=== PATIENT | female | born 1975 | race African-American/Black ===

== ENCOUNTER 2017-07-20 16:30 | Emergency (ER) | payer SELFPAY ==
[~2017-07-20] VITALS: Ht 175.3 cm; Wt 86.0 kg
[~2017-07-20 16:30] MED LIST: CIPR500T2 PO; LORT7.5T3 PO; TRAM50 PO
[2017-07-20 16:31] VITALS: BP 178/118; PULSE 106; RESP 20; TEMP 98.9; O2SAT 97
[2017-07-20 17:20] LABS: AUTOMATED NEUTROPHIL # 4.8 TH/MM3 (1.8-7.7); BASOPHIL % 0.4 % (0.0-2.0); EOSINOPHIL # 0.3 TH/MM3 (0-0.4); EOSINOPHIL % 2.8 % (0.0-4.0); HEMATOCRIT 37.7 % (35.0-46.0); HEMOGLOBIN 12.9 GM/DL (11.6-15.3); LYMPH % 41.6 % (9.0-44.0); LYMPHOCYTE # 4.1 TH/MM3 (1.0-4.8); MEAN CELL VOLUME 97.2 FL (80.0-100.0); MEAN CORPUSCULAR HEMOGLOBIN 33.4 PG (27.0-34.0); MEAN CORPUSCULAR HGB CONC 34.3 % (32.0-36.0); MEAN PLATELET VOLUME 9.4 FL (7.0-11.0); MONOCYTE # 0.6 TH/MM3 (0-0.9); NEUT % 49.2 % (16.0-70.0); PLATELET COUNT 257 TH/MM3 (150-450); RED BLOOD COUNT 3.88 MIL/MM3 (4.00-5.30); RED CELL DISTRIBUTION WIDTH 13.4 % (11.6-17.2); WHITE BLOOD COUNT 9.8 TH/MM3 (4.0-11.0)
[2017-07-20 17:28] LABS: BACTERIA, URINE OCC /hpf; BILIRUBIN, URINE NEG (NEG); BLOOD, URINE LARGE (NEG); GLUCOSE,URINE NEG (NEG); KETONE, URINE NEG (NEG); MUCUS URINE FEW /lpf (OCC); NITRITE,URINE NEG (NEG); PH, URINE 6.5 (5.0-8.5); SQUAMOUS EPITHELIAL CELL URINE 2 /hpf (0-5); URINE LEUKOCYTE ESTERASE SMALL (NEG)
[2017-07-20 17:29] LABS: URINE COLOR LIGHT-RED (YELLW/STRAW)
[2017-07-20 17:34] LABS: ALBUMIN 3.7 GM/DL (3.4-5.0); ALT (GPT) 22 U/L (10-53); AST (GOT) 17 U/L (15-37); BICARBONATE 26.4 MEQ/L (21.0-32.0); BLOOD UREA NITROGEN 10 MG/DL (7-18); CALCIUM 8.9 MG/DL (8.5-10.1); CHLORIDE 105 MEQ/L (98-107); CREATININE 0.89 MG/DL (0.50-1.00); GLOMERULAR FILTRATION RATE 84 ML/MIN (>89); GLUCOSE,RANDOM 98 MG/DL (74-106); SODIUM (NA) 139 MEQ/L (136-145)
[2017-07-20 17:36] LABS: ALKALINE PHOSPHATASE 118 U/L (45-117); TOTAL BILIRUBIN ADULT 0.2 MG/DL (0.2-1.0); TOTAL PROTEIN 8.1 GM/DL (6.4-8.2)
[2017-07-20 18:46] VITALS: BP 176/108; PULSE 86; RESP 16; O2SAT 99
--- NOTE | 2017-07-20 19:39 | PD ---
HPI Chief Complaint: Automatic Nailing Machine Feeder Problem/Complaint Time Seen by Provider: 18:45 Travel History International Travel<30 days: No Contact w/Intl Traveler<30days: No Traveled to known affect area: No History of Present Illness HPI 41-year-old female presents to the ED for evaluation of 3 day history of lower abdominal cramping, gas. She states that this morning when she woke up she had a flush of fluid between her legs. She states that it was watery with a little blood mixed in. She states that the odor was unpleasant but does not describe it as fishy. She had a second flush of fluid this afternoon which prompted her visit today. She states that her last menstrual period was a few weeks ago, lasting 3 days, light bleeding as per normal. She denies fever, chills, decreased appetite, nausea, vomiting. She states that she had protected sex with a single partner since her last period. She states that the intercourse was painful. She has not seen a pointer machine operator in many years. She denies any history of gynecological issues. She is concerned that there may be a retained tampon in her vagina. PFSH Past Medical History Arthritis: No Asthma: No Autoimmune Disease: No Blood Disorders: No Anxiety: No Depression: No Heart Rhythm Problems: No Cancer: No Cardiovascular Problems: No High Cholesterol: No Chemotherapy: No Chest Pain: No Congestive Heart Failure: No COPD: No Cerebrovascular Accident: No Diabetes: No Diminished Hearing: No Endocrine: No Gastrointestinal Disorders: Yes (ABD PAIN) GERD: No Glaucoma: No Genitourinary: No Headaches: No Hepatitis: No Hiatal Hernia: No Hypertension: No Immune Disorder: No Kidney Stones: No Musculoskeletal: No Neurologic: No Psychiatric: No Reproductive: No Respiratory: No Immunizations Current: Yes Migraines: No Myocardial Infarction: No Radiation Therapy: No Renal Failure: No Seizures: No Sickle Cell Disease: No Sleep Apnea: No Thyroid Disease: No Ulcer: No ?: Not Past Surgical History Abdominal Surgery: Yes (SPLEEN SX) AICD: No Appendectomy: No Arteriovenous Shunt: No Cardiac Surgery: No Cholecystectomy: No Ear Surgery: No Endocrine Surgery: No Eye Surgery: No Genitourinary Surgery: No Gynecologic Surgery: No Insulin Pump: No Joint Replacement: No Oral Surgery: No Pacemaker: No Thoracic Surgery: No Social History Alcohol Use: Yes (OCCASIONAL) Tobacco Use: Yes (1/2 PPD) Substance Use: No Allergies-Medications (Allergen,Severity, Reaction): Coded Allergies: Sulfa (Sulfonamide Antibiotics) (Unverified Allergy, Severe, 02/01/17) Reported Meds & Prescriptions Reported Meds & Active Scripts Active Macrobid (Nitrofurantoin Monohydrate Macrocrystals) 100 Mg Capsule 100 Mg PO BID 7 Days Review of Systems Except as stated in HPI: all other systems reviewed are Neg Physical Exam Narrative GENERAL: Well-nourished, pleasant, anxious -[place]anese female in no acute distress. SKIN: Focused skin assessment warm/dry. HEAD: Normocephalic. EYES: No scleral icterus. No injection or drainage. NECK: Supple, trachea midline. No JVD or lymphadenopathy. CARDIOVASCULAR: Regular rate and rhythm without murmurs, gallops, or rubs. RESPIRATORY: Breath sounds equal bilaterally. No accessory muscle use. GASTROINTESTINAL: Abdomen soft, non-tender, nondistended. Active bowel sounds. GENITOURINARY: Normal external genitalia without lesions or erythema. Vaginal vault with mild dark blood and clear fishy smelling drainage. Cervical os was closed without drainage. Subcentimeter implant with smaller 2 satellite implants in the 7 o'clock position of the cervix. Suspicious for cervical cancer. Smooth, lobular mass on a stalk at the 3:00 portion of the cervix. Suspicious for fibroid. No cervical motion tenderness. Uterus nontender and nonenlarged. Bilateral adnexa nontender without masses. MUSCULOSKELETAL: No cyanosis, or edema. BACK: Nontender without obvious deformity. No CVA tenderness. Data Data Last Documented VS Vital Signs Date Time Temp Pulse Resp B/P (MAP) Pulse Ox O2 Delivery O2 Flow Rate FiO2 07/20/17 18:46 86 16 176/108 (130) 99 Room Air 07/20/17 16:31 98.9 Orders Orders Ua Includes Microscopic (07/20/17 16:40) Ed Urine Pregnancytest Poc (07/20/17 16:40) Complete Blood Count With Diff (07/20/17 16:40) Comprehensive Metabolic Panel (07/20/17 16:40) Lipase (07/20/17 16:40) Urine Culture (07/20/17 18:59) Gc And Chlamydia Pcr (07/20/17 19:07) Wet Prep Profile (07/20/17 19:07) Nitrofurantoin Monohyd Macrocr (Macrobid (07/20/17 20:45) Ed Discharge Order (07/20/17 20:56) Labs Laboratory Tests Test 07/20/17 16:45 07/20/17 16:50 07/20/17 20:00 White Blood Count 9.8 TH/MM3 Red Blood Count 3.88 MIL/MM3 Hemoglobin 12.9 GM/DL Hematocrit 37.7 % Mean Corpuscular Volume 97.2 FL Mean Corpuscular Hemoglobin 33.4 PG Mean Corpuscular Hemoglobin Concent 34.3 % Red Cell Distribution Width 13.4 % Platelet Count 257 TH/MM3 Mean Platelet Volume 9.4 FL Neutrophils (%) (Auto) 49.2 % Lymphocytes (%) (Auto) 41.6 % Monocytes (%) (Auto) 6.0 % Eosinophils (%) (Auto) 2.8 % Basophils (%) (Auto) 0.4 % Neutrophils # (Auto) 4.8 TH/MM3 Lymphocytes # (Auto) 4.1 TH/MM3 Monocytes # (Auto) 0.6 TH/MM3 Eosinophils # (Auto) 0.3 TH/MM3 Basophils # (Auto) 0.0 TH/MM3 CBC Comment DIFF FINAL Differential Comment Blood Urea Nitrogen 10 MG/DL Creatinine 0.89 MG/DL Random Glucose 98 MG/DL Total Protein 8.1 GM/DL Albumin 3.7 GM/DL Calcium Level 8.9 MG/DL Alkaline Phosphatase 118 U/L Aspartate Amino Transf (AST/SGOT) 17 U/L Alanine Aminotransferase (ALT/SGPT) 22 U/L Total Bilirubin 0.2 MG/DL Sodium Level 139 MEQ/L Potassium Level 3.5 MEQ/L Chloride Level 105 MEQ/L Carbon Dioxide Level 26.4 MEQ/L Anion Gap 8 MEQ/L Estimat Glomerular Filtration Rate 84 ML/MIN Lipase 119 U/L Urine Color LIGHT-RED Urine Turbidity CLEAR Urine pH 6.5 Urine Specific [place] 1.024 Urine Protein 30 mg/dL Urine Glucose (UA) NEG mg/dL Urine Ketones NEG mg/dL Urine Occult Blood LARGE Urine Nitrite NEG Urine Bilirubin NEG Urine Urobilinogen LESS THAN 2.0 MG/DL Urine Leukocyte Esterase SMALL Urine RBC /hpf Urine WBC 45 /hpf Urine Squamous Epithelial Cells 2 /hpf Urine Bacteria OCC /hpf Urine Mucus FEW /lpf Clue Cells (Wet Prep) NONE SEEN Vaginal Trichomonas (Wet Prep) NONE SEEN Vaginal Yeast (Wet Prep) NONE SEEN MDM Medical Decision Making Medical Screen Exam Complete: Yes Emergency Medical Condition: Yes Differential Diagnosis UTI versus vesicovaginal fistula versus STI versus cervical cancer versus other Narrative Course 41-year-old female presents to the ED for evaluation of 3 day history of lower abdominal cramping, gas. She states that this morning when she woke up she had a flush of fluid between her legs. She states that it was watery with a little blood mixed in. She states that the odor was unpleasant but does not describe it as fishy. She had a second flush of fluid this afternoon which prompted her visit today. LMP a few weeks ago, lasting 3 days, light bleeding as per normal. She endorses protected sex with a single partner since her last period. She endorses dyspareunia. She has not seen a pointer machine operator in many years. She denies any history of gynecological issues. She is concerned that there may be a retained tampon in her vagina. Patient is tachycardic and hypertensive on presentation. Hypertension chronic per record review. On exam the patient is pleasant -[place] female in no acute distress. Abdominal exam is unremarkable. Vaginal vault with moderate amount of dark blood and clear fishy smelling drainage. Cervical loss closed with small amount of bloody drainage. There is a subcentimeter implant with 2 smaller implants in the 7 o'clock position of the cervix which are suspicious for cervical cancer. There is a smooth, lobular mass on a stalk in the 3 o'clock position of the cervix which is suspicious for fibroid. CBC, CMP unremarkable. UA: Light red, large occult blood, small leukocyte esterase, 45 WBCs, occasional bacteria, few mucus. Culture is pending Wet prep negative. I discussed the results of the physical exam and workup with the patient. I stressed the importance of gynecological follow-up given the abnormal pelvic exam. I informed her that is likely she will need a biopsy of the suspicious areas. Patient does not have a primary care and was given information for the [place] [facility]. She is prescribed Macrobid 100 mg twice daily 7 days, first dose administered in the ED. She indicated understanding of instructions and is agreeable care plan. The patient is stable and discharged home. Diagnosis Primary Impression: Urinary tract infection Qualified Codes: N39.0 - Urinary tract infection, site not specified; R31.9 - Hematuria, unspecified Referrals: [facility] Patient Instructions: General Instructions, Urinary Tract Infection in Women ( ED) Additional Instructions: Rest, hydrate. Take the antibiotics as they are prescribed until every pill is gone. Follow-up with the [facility] for [facility] referral this week as discussed. Due to the findings from your pelvic exam it is IMPERATIVE that you follow up with the pointer machine operator. Return to the ED for worsening symptoms or any urgent or emergent medical condition. Med/Other Pt SpecificInfo: Prescription(s) given Scripts Nitrofurantoin Monohydrate Macrocrystals (Macrobid) 100 Mg Capsule 100 MG PO BID for Infection for 7 Days, #14 CAP 0 Refills Prov: Chi Durant MD 07/20/17 Disposition: 01 DISCHARGE HOME Condition: Stable Allie Liu Jul 20, 2017 19:39
[2017-07-20] MEDS ORDERED: MACR100C2 PO (20:18)
[2017-07-20] MEDS ORDERED: NITROFURANTOIN MONOHYD MACROCR 100 MG CAP PO ONE (20:45)
== END 2017-07-20 21:16 | disposition home or self-care (01) ==
LOC: NEPE 16:30
DX: N39.0 Urinary tract infection, site not specified (principal); R31.9 Hematuria, unspecified; F17.200 Nicotine dependence, unspecified, uncomplicated; N94.10 Unspecified dyspareunia
CPT/HCPCS: 80053; 81001; 83690; 84703; 85025; 87210; 87491; 87591; 99283

== ENCOUNTER 2017-07-22 13:34 | Emergency (ER) | payer SELFPAY ==
[~2017-07-22] VITALS: Ht 175.3 cm; Wt 87.0 kg
[~2017-07-22 13:34] MED LIST changes: -CIPR500T2 PO; -LORT7.5T3 PO; +MACR100C2 PO; -TRAM50 PO
[2017-07-22 14:01] VITALS: BP 176/100; PULSE 106; RESP 20; TEMP 98.2; O2SAT 98
--- NOTE | 2017-07-22 15:40 | PD ---
HPI Chief Complaint: Medical Clearance Time Seen by Provider: 15:21 Travel History International Travel<30 days: No Contact w/Intl Traveler<30days: No Traveled to known affect area: No History of Present Illness HPI 41-year-old female was seen 2 days ago with question UTI versus vaginal infection came back positive for gonorrhea in her urine. She is here for treatment. Patient is still to follow-up with [facility]. She has no other acute complaints. Patient currently on Macrodantin for her UTI. She is allergic to sulfa. PFSH Past Medical History Arthritis: No Asthma: No Autoimmune Disease: No Blood Disorders: No Anxiety: No Depression: No Heart Rhythm Problems: No Cancer: No Cardiovascular Problems: No High Cholesterol: No Chemotherapy: No Chest Pain: No Congestive Heart Failure: No COPD: No Cerebrovascular Accident: No Diabetes: No Diminished Hearing: No Endocrine: No Gastrointestinal Disorders: Yes (ABD PAIN) GERD: No Glaucoma: No Genitourinary: No Headaches: No Hepatitis: No Hiatal Hernia: No Hypertension: No Immune Disorder: No Kidney Stones: No Musculoskeletal: No Neurologic: No Psychiatric: No Reproductive: No Respiratory: No Immunizations Current: Yes Migraines: No Myocardial Infarction: No Radiation Therapy: No Renal Failure: No Seizures: No Sickle Cell Disease: No Sleep Apnea: No Thyroid Disease: No Ulcer: No Past Surgical History Abdominal Surgery: Yes (SPLEEN SX) AICD: No Appendectomy: No Arteriovenous Shunt: No Cardiac Surgery: No Cholecystectomy: No Ear Surgery: No Endocrine Surgery: No Eye Surgery: No Genitourinary Surgery: No Gynecologic Surgery: No Insulin Pump: No Joint Replacement: No Oral Surgery: No Pacemaker: No Thoracic Surgery: No Social History Alcohol Use: Yes (OCCASIONAL) Tobacco Use: Yes (1/2 PPD) Substance Use: No Allergies-Medications (Allergen,Severity, Reaction): Coded Allergies: Sulfa (Sulfonamide Antibiotics) (Unverified Allergy, Severe, 07/22/17) Reported Meds & Prescriptions Reported Meds & Active Scripts Active Macrobid (Nitrofurantoin Monohydrate Macrocrystals) 100 Mg Capsule 100 Mg PO BID 7 Days Review of Systems Except as stated in HPI: all other systems reviewed are Neg General / Constitutional: No: Fever Eyes: No: Visual changes HENT: No: Headaches Cardiovascular: No: Chest Pain or Discomfort Respiratory: No: Shortness of Breath Gastrointestinal: No: Abdominal Pain Genitourinary: Positive: Dysuria, Discharge Musculoskeletal: No: Pain Skin: No Rash Neurologic: No: Weakness Psychiatric: No: Depression Endocrine: No: Polydipsia Hematologic/Lymphatic: No: Easy Bruising Physical Exam Narrative GENERAL: Patient is in no acute distress SKIN: Warm and dry. HEAD: Atraumatic. Normocephalic. EYES: Pupils equal and round. No scleral icterus. No injection or drainage. ENT: No nasal bleeding or discharge. Mucous membranes pink and moist. Pharynx is clear. Airway is patent NECK: Trachea midline. CARDIOVASCULAR: Regular rate and rhythm. RESPIRATORY: No accessory muscle use. Clear to auscultation. Breath sounds equal bilaterally. MUSCULOSKELETAL: Extremities without clubbing, cyanosis, or edema. No obvious deformities. NEUROLOGICAL: Awake and alert. No obvious cranial nerve deficits. Motor grossly within normal limits. Five out of 5 muscle strength in the arms and legs. Normal speech. PSYCHIATRIC: Appropriate mood and affect; insight and judgment normal. Data Data Last Documented VS Vital Signs Date Time Temp Pulse Resp B/P (MAP) Pulse Ox O2 Delivery O2 Flow Rate FiO2 07/22/17 14:01 98.2 106 20 176/100 (125) 98 Room Air Orders Orders Ceftriaxone Inj (Rocephin Inj) (07/22/17 15:30) MDM Medical Decision Making Medical Screen Exam Complete: Yes Emergency Medical Condition: Yes Medical Record Reviewed: Yes Differential Diagnosis UTI. Positive gonorrhea urine test. Negative chlamydia. Need for meds. Narrative Course Patient given Rocephin 1000 mg IM. Patient to continue Macrodantin 100 mg twice daily as previously prescribed. Patient's partner should be treated as soon as possible as well. Patient to follow-up with [facility] or the women's clinic as previously discussed. Diagnosis Primary Impression: Gonorrhea Referrals: [facility] Patient Instructions: General Instructions, Gonorrhea (ED) Additional Instructions: Patient given Rocephin 1000 mg IM. Patient to continue Macrodantin 100 mg twice daily as previously prescribed. Patient's partner should be treated as soon as possible as well. Patient to follow-up with [facility] or the women's clinic as previously discussed. Med/Other Pt SpecificInfo: No Change to Meds Disposition: 01 DISCHARGE HOME Condition: Stable Adán,Trever F. PA Jul 22, 2017 15:40
== END 2017-07-22 16:00 | disposition home or self-care (01) ==
LOC: NEPD 13:34
DX: A54.9 Gonococcal infection, unspecified (principal)
CPT/HCPCS: 96372; 99283; J0696